=== PATIENT | male | born 1985 | race Caucasian/White ===

== ENCOUNTER 2018-01-30 13:58 | Emergency (ER) | payer OTHER, SELFPAY ==
--- NOTE | 2018-01-30 13:58 | DI.RAD.S_ITS ---
PROCEDURE: XR CHEST 1V INDICATIONS: trauma TECHNIQUE: One view of the chest was acquired. COMPARISON: [facility], CT, CT CERVICAL SPINE WO CON, 01/30/2018, 13:52. [facility], CT, CT HEAD/BRAIN WO CON, 01/30/2018, 13:52. FINDINGS: Surgical changes and devices: None. Lungs and pleura: No pleural effusions or pneumothorax. Lungs are clear. Mediastinum: Mediastinal contours appear normal. Heart size is normal. Bones and chest wall: No suspicious bony lesions. Overlying soft tissues appear unremarkable. IMPRESSION: No trauma found. Backboard is in place, quality of visualization of portions of the ribs is quite limited laterally, bilaterally. Dictated by: Ariel Vazquez M.D. on 01/30/2018 at 14:17 Approved by: Ariel Vazquez M.D. on 01/30/2018 at 14:18
--- NOTE | 2018-01-30 14:09 | DI.CT.S_ITS ---
PROCEDURE: CT HEAD/BRAIN WO CON INDICATIONS: trauma TECHNIQUE: Noncontrast 4.5 mm thick angled axial sections acquired from the foramen magnum to the vertex, with coronal and sagittal reformats. For radiation dose reduction, the following was used: automated exposure control, adjustment of mA and/or kV according to patient size. COMPARISON: None. FINDINGS: Image quality: Excellent. CSF spaces: Basal cisterns are patent. No extra-axial fluid collections. Ventricles are normal in size and shape. Brain: No midline shift. No intracranial masses or hemorrhage. Coelho-white matter interface is normal. Skull and face: Mildly displaced bilateral nasal bone fractures are noted. Left facial periorbital and perinasal soft tissue swelling is noted. Calvarium is intact, without suspicious lesions. Sinuses: Hyperdense fluid noted in the left maxillary sinus consistent with intrasinus hemorrhage which could be related to bilateral nasal bone fractures or to occult left maxillary sinus wall fracture. The mastoids are clear. IMPRESSION: 1. No acute intracranial disease process. 2. No intracranial hemorrhage. 3. Bilateral nasal bone fractures. 4. Left maxillary intrasinus hemorrhage which could be related to nasal bone fractures versus occult left maxillary sinus wall fracture. Recommend dedicated maxillofacial CT scan for further evaluation if clinically indicated. Dictated by: Beckie Berrios MD, PhD on 01/30/2018 at 14:08 Approved by: Beckie Berrios MD, PhD on 01/30/2018 at 14:13
--- NOTE | 2018-01-30 14:09 | DI.CT.S_ITS ---
PROCEDURE: CT CERVICAL SPINE WO CON INDICATIONS: trauma TECHNIQUE: Noncontrast 3 mm thick sections acquired from the skull base to the T4 level. Sagittal and coronal reformats were then constructed. For radiation dose reduction, the following was used: automated exposure control, adjustment of mA and/or kV according to patient size. COMPARISON: None. FINDINGS: Image quality: Excellent. Bones: No fractures or dislocations. Visualized superior ribs are intact. Spine degenerative disc disease and facet arthropathy. Soft tissues: Prevertebral soft tissues are normal in thickness. No paravertebral hematomas. No apical pneumothoraces. IMPRESSION: No fracture. No acute osseous lesion. If symptoms and/or clinical suspicion for pathology persists, evaluation with MRI may be helpful for further assessment. Dictated by: Beckie Berrios MD, PhD on 01/30/2018 at 14:13 Approved by: Beckie Berrios MD, PhD on 01/30/2018 at 14:20
[2018-01-30] MEDS: ONDANSETRON 4 MG/2 ML INJ IV (14:45)
--- NOTE | 2018-01-30 14:50 | PC.NURSE ---
refer to trauma destinee sheet for documentation.
[2018-01-30 15:04] VITALS: O2SAT 100
--- NOTE | 2018-01-30 15:04 | DI.CT.S_ITS ---
PROCEDURE: CT FACIAL BONES WO CON INDICATIONS: maxillofacial trauma TECHNIQUE: Noncontrast 2.5 mm thick axial images acquired from the mandible through the frontal sinuses, with coronal and sagittal reformatting. For radiation dose reduction, the following was used: automated exposure control, adjustment of mA and/or kV according to patient size. COMPARISON: [facility], CT, CT HEAD/BRAIN WO CON, 01/30/2018, 13:52. FINDINGS: Image quality: Limited by patient motion. Bones and teeth: Nondisplaced fracture of the left infraorbital wall noted. Nondisplaced fractures involving the anterior and posterior-lateral left maxillary sinus hidalgo noted. Nasal bone fractures are noted. No definite mandible fracture identified, however evaluation of the mandible is limited secondary to motion artifact. Zygomatic arches are intact. Pterygoid plates are intact. Visualized portions of the skull base and auditory canals are intact. Sinuses: Hyperdense fluid noted in the left maxillary sinus compatible with intrasinus hemorrhage. Mastoid air cells are aerated. Soft tissues: Left periorbital and perinasal facial soft tissue swelling is noted. No enlarged lymph nodes. No soft tissue lacerations or debris. Vascular: Visualized vascular structures appear normal in the absence of contrast. Bony vascular foramina and canals are intact. IMPRESSION: 1. Nasal bone fractures. 2. Nondisplaced fractures involving the inferior left orbital wall, and the anterior left maxillary sinus wall and the posterior-lateral left maxillary sinus wall. 3. Left maxillary intrasinus hemorrhage. 4. Image quality degraded by patient motion artifact. Mandibular fracture cannot be excluded secondary to motion artifact. Recommend correlation with clinical findings. Dictated by: Beckie Berrios MD, PhD on 01/30/2018 at 15:29 Approved by: Beckie Berrios MD, PhD on 01/30/2018 at 15:39
[2018-01-30 15:40] VITALS: BP 123/76; PULSE 71; RESP 14; O2SAT 100
[2018-01-30] MEDS: AMOXICILLIN/CLAV 875/125 MG 1 TAB PO (16:27)
--- NOTE | 2018-01-30 16:30 | DI.CT.S_ITS ---
PROCEDURE: CT ABDOMEN PELVIS W CON INDICATIONS: Left flank pain, 20 ft fall TECHNIQUE: After the administration of intravenous contrast, 5 mm thick sections acquired from the diaphragm to the symphysis. 5 mm coronal and sagittal reformats were acquired. For radiation dose reduction, the following was used: automated exposure control, adjustment of mA and/or kV according to patient size. COMPARISON: None. FINDINGS: Image quality: Excellent. ABDOMEN: Lung bases: Lung bases are clear except for mild posterior pulmonary contusions versus atelectasis at each lung base, left greater than right. Heart size is normal. Solid organs: Liver is normal in size and enhancement. Gallbladder appears normal. Biliary system is non dilated. Pancreas enhances normally. Spleen is normal in size and enhancement. No adrenal nodules. Kidneys demonstrate normal size and enhancement, without hydronephrosis. Peritoneum and bowel: Bowel loops demonstrate normal wall thickness and caliber. No free fluid or air. Nodes and vessels: No retroperitoneal or mesenteric adenopathy by size criteria. Aorta and inferior vena cava are normal in size. Miscellaneous: No ventral hernias. PELVIS: Genitourinary: Bladder wall thickness is normal. Miscellaneous: No inguinal hernias or adenopathy. Bones: No suspicious bony lesions. No vertebral body compression fractures. IMPRESSION: Mild lung base posterior atelectasis versus mild pulmonary contusions, left greater than right. No pneumothorax or rib fracture found. No visceral injury identified through the abdomen or pelvis. Dictated by: Ariel Vazquez M.D. on 01/30/2018 at 17:05 Approved by: Ariel Vazquez M.D. on 01/30/2018 at 17:12
[2018-01-30 17:38] VITALS: BP 125/77; PULSE 78; RESP 20; TEMP 36.4; O2SAT 100
--- NOTE | 2018-02-07 19:30 | ED.FALL ---
HPI - Fall General Chief Complaint: Trauma Stated Complaint: 20ft fall Time Seen by Provider: 01/30/18 13:58 Source: patient and EMS Mode of arrival: EMS Limitations: no limitations History of Present Illness HPI Narrative: Patient states he was working up on a deck at his job when he lost his balance and fell off the deck. He states that the fall may have been 20 ft but he is not sure. Patient states he has a history of seizure disorder and has not been feeling well lately. He does not think that he was having seizure at the time he fell, but that he simply did not feel good and showed about work that day. Patient does not remember hitting the ground, and believes he lost consciousness. Patient's complaints are mainly in the head and face at this time. He denies pain in his arms or legs. No back pain chest pain or abdominal pain. No difficulty breathing. Other than history of seizure disorder, patient is healthy. MD complaint: fall Related Data Previous Rx's Medication Instructions Recorded amoxicillin-pot clavulanate 1 tab PO BID #14 tab 01/30/18 [Augmentin] hydrocodone-acetaminophen 2 tab PO Q4H PRN #20 tab 01/30/18 ondansetron [Zofran ODT] 4 mg PO QID PRN #20 tab 01/30/18 Allergies Allergy/AdvReac Type Severity Reaction Status Date / Time No Known Drug Allergies Allergy Verified 01/30/18 14:51 Review of Systems Review of Systems All systems reviewed & are unremarkable except as noted in HPI and below Constitutional Denies chills, Denies fever(s), Denies lethargy and Denies weakness Eyes Denies change in vision, Denies eye discharge, Denies irritation and Denies loss of vision ENT Ears, Nose, Mouth, and Throat: Denies change in voice, Denies neck pain and Denies sore throat Comments: Trauma to face. Cardiovascular Denies chest pain, Denies irregular heart rhythm, Denies lightheadedness, Denies palpitations, Denies dyspnea, Denies dyspnea on exertion and Denies orthopnea Respiratory Denies cough, Denies dyspnea, Denies dyspnea on exertion and Denies wheezing Gastrointestinal Gastrointestinal: Denies abdominal pain, Denies change in bowel habits, Denies diarrhea, Denies nausea and Denies vomiting Genitourinary Denies hematuria, Denies flank pain, Denies urinary incontinence and Denies urinary urgency Musculoskeletal Denies neck pain Integumentary/Breasts Denies pruritus, Denies erythema, Denies rash and Denies wounds Neurologic Denies confusion, Denies loss of vision and Denies weakness Psychiatric Denies anxiety, Denies confusion, Denies depression, Denies homicidal ideation and Denies suicidal ideation Endocrine Denies palpitations Hematologic/Lymphatic Denies easy bruising Allergic/Immunologic Denies wheezing Exam Initial Vital Signs Initial Vital Signs: Vital Signs Pulse Rate 71 01/30/18 15:40 Respiratory Rate 14 01/30/18 15:40 Blood Pressure 123/76 01/30/18 15:40 Pulse Oximetry 100 01/30/18 15:40 Const General: cooperative and well developed Nutritional Appearance: well nourished Orientation: alert, awake, oriented x3 and not confused [facility] Head: normocephalic, abrasion (Multiple, left face.), No Johns's sign, No palpable skull fracture, No raccoon eyes and periorbital ecchymosis (Left side, with swelling of upper eyelid. No evidence of injury to the eye itself. Pupils are equal round reactive to light. Patient extraocular muscles are intact bilaterally. No facial crepitus.) Ears: external ears normal and TM's normal bilaterally Nose: No epistaxis, external nose abnormal (Abrasion over bridge) and No nasal discharge Face and sinus: sinuses nontender, face symmetric, no sinus tenderness and No dry mucous membranes Mouth: oral mucosae normal and moist mucous membranes Teeth and gingiva: dentition normal Throat: tonsils normal and uvula midline Eyes General: appearance normal, both eyes and all related structures Eyelids: eyelids normal Conjunctivae: conjunctivae normal Sclera: sclerae normal Pupils: PERRL EOM: EOM intact bilaterally Neck Neck: normal visual inspection, trachea midline, No lymphadenopathy, No midline deformity and No JVD Lymphatic: No lymphedema Chest Chest: normal inspection of the chest, normal palpation of entire chest wall and No tenderness Resp Effort & Inspection: normal respiratory effort, able to speak in complete sentences, no respiratory distress and no use of accessory muscles Auscultation: clear to auscultation bilaterally, no rales, no rhonchi and no wheezes Cardio Rate: regular rate Rhythm: regular rhythm Heart Sounds: no click, no gallops, no murmurs and no rubs Pulses: normal peripheral pulses GI Inspection: non-distended Palpation: soft, no hepatosplenomegaly, No guarding, No pulsatile mass and No tender Back/Spine/Pelvis Back: No CVA tenderness Cervical Spine: cervical ROM normal and No pain with cervical ROM Thoracic/Lumbar Spine: thoracic and lumbar spine normal to inspection Other: No tenderness or step-off at any level of the patient's spine. His pelvis is stable and nontender. Skin General: no rashes or lesions noted, No jaundice and No petechiae Neuro General: alert, oriented x3, gait normal and no focal motor deficits Speech: speech normal Motor: strength 5/5 throughout and no movement abnormalities noted Sensory Exam: no sensory deficits noted Extrem General: full ROM, no clubbing, cyanosis or edema, no pedal edema and no calf tenderness Psych Appearance: well kempt Mental Status: mental status grossly normal Attitude: cooperative Thought Content: normal and suicidality Judgment: judgment good PFSH Medical History Seizure disorder (Acute) Surgical History No pertinent past surgical history (Acute) Social History Smoking Status: Current some day smoker Course Course Narrative: Patient was evaluated by myself immediately upon arrival with EMS. He was sent for CT scan of the head and neck initially, and both of these were found to be negative. He was sent back 1st CT of the face which showed fractures of the left orbital floor and nasal bone, as well as blood in the left maxillary sinus. Patient did not have any entrapment, but since he did have an orbital floor fracture, I did start him on Augmentin prophylactically. Patient was stable throughout his stay in the emergency department, but he did begin to complain of left flank pain, which was increasing throughout his stay in the emergency department. As he had not complained of this initially, but the pain had developed, I was concerned for renal or splenic injury, and as such, I did send him for CT of the abdomen and pelvis. This was performed and found to be negative. I did feel that at this point, the patient is stable for discharge home. I have given him follow-up instructions, and we have discussed symptomatic management at home. I have advised him that he should not be up on any elevated surface where he can fall over an edge until he is feeling completely better. We have discussed that symptoms after closed head injury such as the patient has had me include dizziness and altered balance sensation, which may put him at risk for further falls. The usual indications for return have been discussed. Orders Ordered: Discontinued Medications Amoxicillin/Clavulanate Potassium (Augmentin 875-125 Mg) 1 tab PO NOW ONE Stop: 01/30/18 16:11 Last Admin: 01/30/18 16:27 Dose: 1 tab Ondansetron HCl (Zofran) 4 mg IV NOW ONE Stop: 01/30/18 14:52 Last Admin: 01/30/18 14:45 Dose: 4 mg Discharge Plan Departure Patient Disposition: Home Clinical Impression: CHI (closed head injury), Fracture of nasal bone, Fracture of inferior orbital wall, Injury resulting from fall from height Discharge Date/Time: 01/30/18 17:40 Interventions: ED Discharge Assessment Last Done: 01/30/18 17:38 Instructions: DI for Concussion, DI for Nose Fracture, DI for Orbital Fracture, DI for Closed Head Injury Activity Restrictions/Additional Instructions: Your chest x-ray looked good. The CTs of your head and neck also looked good. Your facial CT showed breaks in the bones of your nose and the bone around your left eye. Because one of the breaks borders your sinus, we have put you on antibiotics to help prevent infection. the CT of your abdomen pelvis did not show any injury to your internal organs, other then potentially some very mild bruising at the bottom of your lungs. This appearance may also be due to not taking a deep breath, due to pain. If you develop shortness of breath, cough, or fever, please return to the emergency department for further evaluation. Prescriptions: New hydrocodone-acetaminophen 5-325 mg tablet 2 tab PO Q4H PRN (Reason: pain) Qty: 20 RF: 0 ondansetron [Zofran ODT] 4 mg tablet,disintegrating 4 mg PO QID PRN (Reason: nausea and vomiting) Qty: 20 RF: 0 amoxicillin-pot clavulanate [Augmentin] 875-125 mg tablet 1 tab PO BID Qty: 14 RF: 0 Referrals: [facility] [Provider Group] Stand Alone Forms: Work/School Restrictions
== END 2018-01-30 17:40 | disposition home or self-care (01) ==
PROVIDERS: Emergency Provider Emergency Medicine
DX: S02.2XXA Fracture of nasal bones, initial encounter for closed fracture (principal); S02.30XA Fracture of orbital floor, unspecified side, initial encounter for closed fracture; S09.90XA Unspecified injury of head, initial encounter; W17.89XA Other fall from one level to another, initial encounter
CPT/HCPCS: 70450; 70486; 71045; 72125; 74177; 96374; 99281; 99291; 99292; G0390; J2405; Q9967